=== PATIENT | female | born 1950 | race Caucasian/White ===

== ENCOUNTER 2020-08-01 12:47 | Outpatient (CLI) | payer MEDICARE, MEDICAID, SELFPAY ==
--- NOTE | ~2020-08-01 | MM_ITS ---
EXAMINATION: MM screening margaret BI w rm HISTORY: Screening TECHNIQUE: Craniocaudal and mediolateral oblique 3-D tomosynthesis images were obtained and synthetic 2-D images were generated. CAD analysis was submitted and interpreted. COMPARISON: Comparison to multiple prior studies sequentially, with oldest reviewed study dated 08/24. BREAST PARENCHYMAL COMPOSITION: There are scattered areas of fibroglandular density. FINDINGS: There is no evidence of suspicious mass, calcification, or architectural distortion to sugg est malignancy in either breast. There has been no suspicious interval change. IMPRESSION: 1. No mammographic evidence of malignancy. 2. Recommend routine screening mammography in one year. BI-RADS Category 1: Negative Reviewed, dictated and finalized at location A.
== END 2020-08-01 12:48 | disposition home or self-care (01) ==
PROVIDERS: PCP Family Medicine; Visit Provider Family Medicine
DX: Z12.31 Encounter for screening mammogram for malignant neoplasm of breast (principal)
CPT/HCPCS: 77063; 77067

== ENCOUNTER 2020-08-06 06:33 | Outpatient (CLI) | payer MEDICARE, MEDICAID, SELFPAY ==
--- NOTE | ~2020-08-06 | MR_ITS ---
EXAMINATION: MR lumbar spine wo con DATE: 08/06/2020 07:45 INDICATION: Lumbar radiculopathy TECHNIQUE: Magnetic resonance imaging (MRI) of the lumbar spine was performed without intravenous con trast. Sequences included sagittal T2-weighted FSE, sagittal T2-weighted FS FSE, sagittal T1-weighted FSE, and axial T2-weighted FSE. COMPARISON: None FINDINGS: 20 degrees lumbar levoscoliosis. Vertebral body heights are normal. Schmorl's node along the superior endplate of T12. T1 hyperintense hemangioma at T12. Severe disc height loss with associated fibrofat ty and fibrovascular degenerative endplate changes at L1-L2. Moderate disc height loss at L4-L5. Mild disc height loss at T10-T11, T11-T12, L2-L3 and L3-L4. The conus medullaris terminates at T12-L1. Th ere is normal signal in the caudal spinal cord. Paravertebral soft tissues are unremarkable. The foll owing disc levels are specifically discussed: T12-L1: Disc is bulging. There is mild bilateral facet joint osteoarthritis. There is mild right neur al foraminal stenosis. There is mild bilateral central canal stenosis. L1-L2: Disc is bulging. There is moderate left and moderate right facet joint osteoarthritis. There i s mild left and mild to moderate right neural foraminal stenosis. There is mild central canal stenosi s along with mild narrowing of the right lateral recess. L2-L3: Disc is bulging. There is moderate bilateral facet joint osteoarthritis. There is moderate lef t and mild to moderate right neural foraminal stenosis. There is mild central canal stenosis along wi th mild narrowing of the lateral recesses, left greater than right. L3-L4: Disc is bulging. There is hypertrophy of the ligamentum flavum. There is severe left and mild to moderate right facet joint osteoarthritis. There is mild to moderate bilateral neural foraminal st enosis. There is moderate central canal stenosis along with narrowing of the lateral recesses, left g reater than right. L4-L5: Disc is bulging with superimposed more focal small central disc protrusion. There is severe bi lateral facet joint osteoarthritis. There is mild to moderate bilateral neural foraminal stenosis. Th ere is mild central canal stenosis along with narrowing of the left and right lateral recesses. L5-S1: Disc is mildly bulging. There is moderate left and severe right facet joint osteoarthritis. Th ere is mild left and mild to moderate right neural foraminal stenosis. There is no central canal sten osis. There is mild narrowing of the lateral recesses. IMPRESSION: 1. 20 degrees lumbar dextroscoliosis with moderate to severe spondylosis. Reviewed, dictated and finalized at location A.
[2020-08-06 09:17] LABS: Basophils Absolute Auto 0.1 K/mm3 (0.0-0.1); Basophils Percent Auto 0.7 % (0.2-1.2); Eosinophils Absolute Auto 0.2 K/mm3 (0-0.3); Eosinophils Percent Auto 1.2 % (0-4.4); Hematocrit 45.8 % (37.0-47.0); Hemoglobin 15.5 g/dL (12.0-15.0); Immature Granulocyte Absolute 0.04 K/mm3 (0.00-0.031); Immature Granulocyte Percent A 0.3 % (0-0.5); Lymphocytes Absolute Auto 3.48 K/mm3 (0.9-3.2); Lymphocytes Percent Auto 25.4 % (18.3-44.2); Mean Corpuscular HGB Conc 33.8 g/dl (32-36); Mean Corpuscular Hemoglobin 30.9 pg (26-34); Mean Corpuscular Volume 91.4 fl (80-100); Mean Platelet Volume 9.6 fl (7.4-10.4); Monocytes Absolute Auto 0.8 K/mm3 (0.1-0.6); Monocytes Percent Auto 6.1 % (2.6-8.5); Neutrophils Absolute Auto 9.1 K/mm3 (1.3-6.7); Neutrophils Percent Auto 66.3 % (45.5-73.1); Platelet Count Result 324 k/mm3 (150-375); Red Blood Count 5.01 M/mm3 (4.2-5.4); Red Cell Distribution Width 12.5 % (11.5-14.5); White Blood Count 13.7 K/mm3 (4.5-10.0)
[2020-08-06 09:31] LABS: Alanine Aminotransferase 15 U/L (4-35); Albumin Level 4.6 g/dL (3.5-5.1); Alkaline Phosphatase 96 U/L (38-126); Anion Gap 10 mmol/L (8-16); Aspartate Amino Transferase 25 U/L (14-36); Bilirubin,Total 0.3 mg/dL (0.2-1.3); Blood Urea Nitrogen 15 mg/dL (7-17); Calcium 9.6 mg/dL (8.4-10.2); Carbon Dioxide 28 mmol/L (22-30); Chloride 102 mmol/L (98-107); Cholesterol 206 mg/dL (0-200); Estimated Glomerular Filt Rate 55; Glucose 115 mg/dL (65-105); HDL Direct 37 mg/dL; Potassium 4.2 mmol/L (3.4-5.0); Sodium 140 mmol/L (137-145); Triglycerides 308 mg/dL (<150)
[2020-08-06 09:41] LABS: LDL Cholesterol Direct 118 mg/dL
[2020-08-06 10:03] LABS: Free T4 Free Thyroxine 0.95 ng/mL (0.78-2.19)
[2020-08-06 10:16] LABS: Total Triiodothyronine (T3) 1.27 NG/ML (0.97-1.69)
[2020-08-06 10:17] LABS: Creatinine Urine 43.8 mg/dL
[2020-08-06 10:37] LABS: Vitamin D 25 Hydroxy 44.1 ng/mL
[2020-08-06 11:32] LABS: MALB Creatinine Ratio < 13.7 mg/g (0-30); Microalbumin Urine Random < 6.0 mg/L (0-16.7)
== END 2020-08-06 06:34 | disposition home or self-care (01) ==
PROVIDERS: PCP Family Medicine; Referring Provider Nurse Practitioner; Visit Provider Nurse Practitioner Adult Health
DX: E78.2 Mixed hyperlipidemia (principal); R53.83 Other fatigue; R06.00 Dyspnea, unspecified; E55.9 Vitamin D deficiency, unspecified; I10 Essential (primary) hypertension; M47.26 Other spondylosis with radiculopathy, lumbar region; M41.86 Other forms of scoliosis, lumbar region
CPT/HCPCS: 36415; 72148; 80053; 80061; 82043; 82306; 84439; 84443; 84480; 85025

== ENCOUNTER 2020-09-17 13:26 | Outpatient (CLI) | payer MEDICARE, MEDICAID, SELFPAY ==
--- NOTE | 2020-09-17 | ECG_ITS ---
Measurements Intervals [place] Rate: 80 P: 55 WA: 143 QRS: 33 QRSD: 71 T: 55 QT: 380 QTc: 441 Interpretive Statements SINUS RHYTHM BORDERLINE ST ABNORMALITY- ANTEROLATERAL LEADS BASELINE ARTIFACT- II, III BORDERLINE ECG Electronically Signed On 09-17-2020 14:43:12 CDT by Yoandy Johnson D.O.
== END 2020-09-17 13:27 | disposition home or self-care (01) ==
PROVIDERS: PCP Family Medicine
DX: I10 Essential (primary) hypertension (principal); R94.31 Abnormal electrocardiogram [ECG] [EKG]
CPT/HCPCS: 93005

== ENCOUNTER 2021-09-25 07:54 | Outpatient (CLI) | payer MEDICARE, MEDICAID, SELFPAY ==
--- NOTE | ~2021-09-25 | MM_ITS ---
EXAMINATION: MM screening margaret BI w rm HISTORY: Screening TECHNIQUE: Craniocaudal and mediolateral oblique 3-D tomosynthesis images were obtained and synthetic 2-D images were generated. CAD analysis was submitted and interpreted. COMPARISON: Comparison to multiple prior studies sequentially, with oldest reviewed study dated 09/23. BREAST PARENCHYMAL COMPOSITION: Breast composed of scattered areas of fibroglandular density. FINDINGS: There are developing asymmetries in the subareolar location of the right breast. The left b reast is stable without evidence for malignancy. IMPRESSION: 1. Developing right breast asymmetries. 2. Additional mammographic views and possible breast ultrasound are recommended. BI-RADS Category 0: Incomplete: Needs additional imaging evaluation. Reviewed, dictated and finalized at location A. IMPRESSION: 1. Developing right breast asymmetries. 2. Additional mammographic views and possible breast ultrasound are recommended . BI-RADS Category 0: Incomplete: Needs additional imaging evaluation.
--- NOTE | ~2021-09-25 | DEXA_ITS ---
Bone Density Report Name: Gloria Rodriguez Age: 71 Sex: Female Ethnicity: White Date of : 1950 Indication: postmenopausal; parental hip fracture; prior fracture; cancer; Referring Provider: ShoAlison Study: Bone densitometry was performed. Exam Date: September 25, 2021 Accession number: [id number] Bone Density: Region BMD T-score Z-score Classification AP Spine (L3, L4) 0.992 -1.0 1.3 Normal Femoral Neck (Left) 0.570 -2.5 -0.6 Osteoporosis Total Hip (Left) 0.840 -0.8 0.8 Normal Total Hip Bilateral Avg 0.821 -1.0 0.6 Osteopenia Femoral Neck (Right) 0.622 -2.0 -0.2 Osteopenia Total Hip (Right) 0.801 -1.2 0.4 Osteopenia World Health Organization criteria for BMD impression classify patients as: Normal (T-score at or above -1.0), Osteopenia (T-score between -1.0 and -2.5), or Osteoporosis (T-score at or below -2.5). 10-year Fracture Risk: FRAX not reported because: Some T-score for Spine Total or Hip Total or Femoral Neck at or below -2.5 Previous Exams: Region Exam Age BMD T-score BMD Change BMD Change Date g/cm2 vs Baseline vs Previous AP Spine(L3, L4) 09/25/2021 71 0.992 -1.0 -0.056(-5.4%)# 0.000(0.0%) 12/11/2016 66 0.992 -1.0 -0.056(-5.3%)# 0.062(6.7%)# 10/10/2013 63 0.930 -1.6 -0.118(-11.3%) -0.118(-11.3%) 11/21/2010 60 1.048 -0.5 Total Hip(Left) 09/25/2021 71 0.840 -0.8 -0.067(-7.4%)# -0.043(-4.8%)* 12/11/2016 66 0.883 -0.5 -0.025(-2.7%)# -0.026(-2.8%)# 10/10/2013 63 0.909 -0.3 0.001(0.1%)# 0.001(0.1%)# 11/21/2010 60 0.907 -0.3 Total Hip(Right) 09/25/2021 71 0.801 -1.2 -0.074(-8.5%)# -0.045(-5.4%)* 12/11/2016 66 0.846 -0.8 -0.029(-3.3%)# -0.011(-1.3%)# 10/10/2013 63 0.857 -0.7 -0.017(-2.0%)# -0.017(-2.0%)# 11/21/2010 60 0.875 -0.6 *Denotes significance at 95% confidence level, LSC for AP Spine = 0.022 g/cm2, LSC for Total Hip = 0.027 g/cm2 Clinical Information Provided by Patient: Has had a low trauma fracture Parent has had a hip fracture Smokes Has used the following medications: Vitamin D Has the following medical conditions: Cancer Patient maximum height was 60 Menopause Age: 50 No regular weight bearing exercise Does not regularly consume dairy products Drinks caffeinated beverages Onset of menses at age 13 Number of children 4 Impression: The patient has established osteoporosis, based on the Left Femoral Neck T-score and the existence of a prior
== END 2021-09-25 07:55 | disposition home or self-care (01) ==
LOC: ANHIMG 07:56
PROVIDERS: PCP Family Medicine; Visit Provider Nurse Practitioner Family
DX: Z12.31 Encounter for screening mammogram for malignant neoplasm of breast (principal); Z78.0 Asymptomatic menopausal state; M85.89 Other specified disorders of bone density and structure, multiple sites; M81.0 Age-related osteoporosis without current pathological fracture; R92.8 Other abnormal and inconclusive findings on diagnostic imaging of breast
CPT/HCPCS: 77063; 77067; 77080

== ENCOUNTER 2021-10-08 12:03 | Outpatient (CLI) | payer MEDICARE, MEDICAID, SELFPAY ==
--- NOTE | ~2021-10-08 | MMUS_ITS ---
EXAMINATION: MM diagnostic margaret RT w rm, US breast RT limited HISTORY: Focal asymmetry of the right breast on screening mammogram, history of right breast cancer TECHNIQUE: Additional 3-D tomosynthesis images of the right breast were performed and synthetic 2-D i mages were generated. CAD analysis was submitted and interpreted. High resolution limited right breas t ultrasound was performed. COMPARISON: 09/25/2021, 08/01/2020, 03/04/2018, 12/11/2016 FINDINGS: MAMMOGRAPHIC FINDINGS: Focal asymmetry in the subareolar aspect of the right breast persists with spot compression. No discr ete mass is identified. ULTRASOUND: There is a 7 mm x 4 mm oval, circumscribed, parallel, hypoechoic mass with posterior acoustic shadowi ng and no definite internal vascularity in the subareolar aspect of the breast. In addition, there is an ill-defined hypoechoic region in the subareolar breast which is near the patient's scar difficult to discriminate from postoperative change. IMPRESSION: 1. Indeterminate subareolar right breast mass. 2. Ultrasound-guided biopsy is recommended. BI-RADS category 4, suspicious findings. Reviewed, dictated and finalized at location A. CAL ASSOCIATE IMPRESSION: 1. Indeterminate subareolar right breast mass. 2. Ultrasound-guided biopsy is recommended. BI-RADS category 4, suspicious findings.
== END 2021-10-08 12:04 | disposition home or self-care (01) ==
PROVIDERS: PCP Family Medicine; Visit Provider Nurse Practitioner Family
DX: Z12.31 Encounter for screening mammogram for malignant neoplasm of breast (principal); R92.8 Other abnormal and inconclusive findings on diagnostic imaging of breast
CPT/HCPCS: 76642; 77061; 77065; G0279

== ENCOUNTER 2022-05-19 11:42 | Outpatient (CLI) | payer MEDICARE, MEDICAID, SELFPAY ==
--- NOTE | ~2022-05-19 | MMUS_ITS ---
EXAMINATION: MM diagnostic margaret RT w rm, US breast RT limited HISTORY: Follow-up right breast mass TECHNIQUE: Additional 3-D tomosynthesis images of the right breast were performed and synthetic 2-D i mages were generated. CAD analysis was submitted and interpreted. High resolution Limited right breas t ultrasound was performed. COMPARISON: Comparison to multiple prior studies sequentially, with oldest reviewed study dated 10/24. BREAST PARENCHYMAL COMPOSITION: Breast composed of scattered areas of fibroglandular density FINDINGS: MAMMOGRAPHIC FINDINGS: There is developing asymmetries in the periareolar location the right breast. There are no suspicious calcifications or architectural distortion. ULTRASOUND: Limited right breast ultrasound: There are multiple ill-defined hypoechoic masses of the right breast in the subareolar location, largest measuring 7 mm. These areas appear slightly prominent on both ul trasound and mammography. IMPRESSION: 1. Suspicious subareolar right breast masses. 2. Ultrasound-guided right breast biopsy recommended. BI-RADS category 4, suspicious findings. Reviewed, dictated and finalized at location A. IMPRESSION: 1. Suspicious subareolar right breast masses. 2. Ultrasound-guided right breast biopsy recommended. BI-RADS category 4, suspicious findings.
== END 2022-05-19 11:43 | disposition home or self-care (01) ==
PROVIDERS: PCP Family Medicine; Visit Provider Nurse Practitioner
DX: Z85.3 Personal history of malignant neoplasm of breast (principal); R92.8 Other abnormal and inconclusive findings on diagnostic imaging of breast
CPT/HCPCS: 76642; 77061; 77065; G0279

== ENCOUNTER 2022-08-26 10:09 | Outpatient (CLI) | payer MEDICARE, MEDICAID, SELFPAY ==
[2022-08-26 11:08] LABS: Basophils Absolute Auto 0.1 K/mm3 (0.0-0.1); Basophils Percent Auto 0.5 % (0.2-1.2); Eosinophils Absolute Auto 0.1 K/mm3 (0-0.3); Eosinophils Percent Auto 1.1 % (0-4.4); Hematocrit 42.5 % (37.0-47.0); Hemoglobin 14.2 g/dL (12.0-15.0); Immature Granulocyte Absolute 0.07 K/mm3 (0.00-0.031); Immature Granulocyte Percent A 0.5 % (0-0.5); Lymphocytes Absolute Auto 3.43 K/mm3 (0.9-3.2); Lymphocytes Percent Auto 26.5 % (18.3-44.2); Mean Corpuscular HGB Conc 33.4 g/dl (32-36); Mean Corpuscular Hemoglobin 32.4 pg (26-34); Monocytes Absolute Auto 0.8 K/mm3 (0.1-0.6); Monocytes Percent Auto 6.4 % (2.6-8.5); Neutrophils Absolute Auto 8.4 K/mm3 (1.3-6.7); Platelet Count Result 316 k/mm3 (150-375); Red Blood Count 4.38 M/mm3 (4.2-5.4); Red Cell Distribution Width 12.2 % (11.5-14.5)
[2022-08-26 11:28] LABS: Alanine Aminotransferase 16 U/L (6-35); Albumin Level 4.6 g/dL (3.5-5.1); Alkaline Phosphatase 80 U/L (38-126); Anion Gap 10 mmol/L (8-16); Aspartate Amino Transferase 25 U/L (14-36); Bilirubin,Total 0.5 mg/dL (0.2-1.3); Blood Urea Nitrogen 14 mg/dL (7-17); Calcium 9.2 mg/dL (8.4-10.2); Carbon Dioxide 26 mmol/L (22-30); Chloride 98 mmol/L (98-107); Cholesterol 184 mg/dL (0-200); Estimated Glomerular Filt Rate > 60; Glucose 114 mg/dL (65-110); HDL Direct 39 mg/dL; Potassium 4.1 mmol/L (3.4-5.0); Sodium 134 mmol/L (137-145); Triglycerides 233 mg/dL (<150)
[2022-08-26 11:35] LABS: LDL Cholesterol Direct 98 mg/dL
[2022-08-26 12:50] LABS: Total Triiodothyronine (T3) 1.63 NG/ML (0.97-1.69)
[2022-08-26 12:52] LABS: Free T4 Free Thyroxine 1.19 ng/mL (0.78-2.19); Vitamin D 25 Hydroxy 42.9 ng/mL
[2022-08-26 15:24] LABS: Hemoglobin A1C 6.1 % (<5.7)
== END 2022-08-26 10:10 | disposition home or self-care (01) ==
PROVIDERS: PCP Family Medicine; Visit Provider Family Medicine
DX: E78.5 Hyperlipidemia, unspecified (principal); I10 Essential (primary) hypertension; Z13.1 Encounter for screening for diabetes mellitus; E55.9 Vitamin D deficiency, unspecified
CPT/HCPCS: 36415; 80053; 80061; 82306; 83036; 84439; 84443; 84480; 85025

== ENCOUNTER 2022-09-09 14:03 | Outpatient (CLI) | payer MEDICARE, MEDICAID, SELFPAY ==
--- NOTE | ~2022-09-09 | CT_ITS ---
EXAMINATION: CT thoracic lumbar wo con DATE: 09/09/2022 14:28 INDICATION: Chronic mid to low back pain. Lumbar disc degeneration. TECHNIQUE: Computed tomography (CT) of the thoracic and lumbar spine was performed without intravenou s contrast. Automated exposure control and iterative reconstruction technique were employed. The dose -length product was 705.66 mGy-cm. COMPARISON: None FINDINGS: CT THORACIC SPINE: There is mild scarring at the lung apices. There is mild emphysema. Calcified pulm onary nodules and calcified hilar and mediastinal lymph nodes are consistent with old granulomatous d isease. There is 12 degrees levoscoliosis of thoracolumbar spine. There is mild chronic height loss o f T7 and T12 vertebral bodies. There are Schmorl's nodes at multiple levels. There is mildly decrease d disc height at multiple levels in mid and inferior thoracic spine. There is severely decreased disc height at T8-T9. At T8-T9, there is a calcified left central extrusion with mild central canal steno sis. At T11-T12, there is a calcified right central extrusion mild central canal stenosis. There is m ultilevel mild facet joint osteoarthritis. No neural foraminal stenosis. CT LUMBAR SPINE: There is 22 degrees dextroscoliosis of lumbar spine. Vertebral body heights are norm al. There is severely decreased disc height at L1-L2, moderately decreased disc height at L2-L3, and mildly decreased disc height at L3-L4, L4-L5, and L5-S1. The following disc levels are specifically d iscussed: T12-L1: The disc is bulging. There is mild bilateral facet joint osteoarthritis. There is mild right neural foraminal stenosis. There is mild central canal stenosis. L1-L2: The disc is bulging. There is moderate right and mild left facet joint osteoarthritis. There i s mild bilateral neural foraminal stenosis. There is mild central canal stenosis. L2-L3: The disc is bulging. There is severe bilateral facet joint osteoarthritis. There is mild bilat eral neural foraminal stenosis. There is mild central canal stenosis. L3-L4: The disc is bulging. There is severe bilateral facet joint osteoarthritis. There is mild bilat eral neural foraminal stenosis. There is mild central canal stenosis. L4-L5: The disc is bulging. There is severe bilateral facet joint osteoarthritis. There is mild bilat eral neural foraminal stenosis. There is mild central canal stenosis. L5-S1: The disc is bulging. There is severe bilateral facet joint osteoarthritis. There is mild bilat eral neural foraminal stenosis. There is mild central canal stenosis. IMPRESSION: 1. Severe thoracic and lumbar spondylosis. 2. Thoracolumbar levoscoliosis and lumbar dextroscoliosis. Reviewed, dictated and finalized at location B.
== END 2022-09-09 14:04 | disposition home or self-care (01) ==
PROVIDERS: PCP Family Medicine; Visit Provider Nurse Practitioner Adult Health
DX: M51.36 Other intervertebral disc degeneration, lumbar region (principal); M47.894 Other spondylosis, thoracic region; M47.896 Other spondylosis, lumbar region
CPT/HCPCS: 72128; 72131

== ENCOUNTER 2023-05-28 09:00 | Outpatient (CLI) | payer MEDICARE, MEDICAID, SELFPAY ==
[2023-05-28 12:35] LABS: Basophils Absolute Auto 0.1 K/mm3 (0.0-0.1); Basophils Percent Auto 0.4 % (0.2-1.2); Eosinophils Absolute Auto 0.1 K/mm3 (0-0.3); Eosinophils Percent Auto 0.5 % (0-4.4); Hemoglobin 13.2 g/dL (12.0-15.0); Immature Granulocyte Absolute 0.17 K/mm3 (0.00-0.031); Immature Granulocyte Percent A 1.1 % (0-0.5); Lymphocytes Absolute Auto 5.65 K/mm3 (0.9-3.2); Lymphocytes Percent Auto 35.4 % (18.3-44.2); Mean Corpuscular HGB Conc 33.8 g/dl (32-36); Mean Corpuscular Volume 94.4 fl (80-100); Mean Platelet Volume 8.9 fl (7.4-10.4); Neutrophils Percent Auto 56.6 % (45.5-73.1); Platelet Count Result 315 k/mm3 (150-375); Red Blood Count 4.13 M/mm3 (4.2-5.4); Red Cell Distribution Width 12.7 % (11.5-14.5)
[2023-05-28 12:48] LABS: Alanine Aminotransferase 19 U/L (6-35); Albumin Level 4.5 g/dL (3.5-5.1); Alkaline Phosphatase 58 U/L (38-126); Anion Gap 6 mmol/L (8-16); Aspartate Amino Transferase 22 U/L (14-36); Bilirubin,Total 0.3 mg/dL (0.2-1.3); Blood Urea Nitrogen 17 mg/dL (7-17); Calcium 9.6 mg/dL (8.4-10.2); Carbon Dioxide 33 mmol/L (22-30); Chloride 101 mmol/L (98-107); Cholesterol 201 mg/dL (0-200); Estimated Glomerular Filt Rate 54; Glucose 97 mg/dL (65-110); HDL Direct 44 mg/dL; Potassium 4.4 mmol/L (3.4-5.0); Sodium 140 mmol/L (137-145); Triglycerides 325 mg/dL (<150)
[2023-05-28 12:59] LABS: LDL Cholesterol Direct 100 mg/dL
[2023-05-28 13:19] LABS: Thyroid Stimulating Hormone 0.655 uIU/mL (0.465-4.680); Total Triiodothyronine (T3) 1.22 NG/ML (0.97-1.69)
[2023-05-28 13:20] LABS: Free T4 Free Thyroxine 0.95 ng/mL (0.78-2.19)
== END 2023-05-28 09:01 | disposition home or self-care (01) ==
PROVIDERS: PCP Family Medicine; Visit Provider Nurse Practitioner Adult Health
DX: E78.5 Hyperlipidemia, unspecified (principal); R53.1 Weakness; R53.83 Other fatigue; I10 Essential (primary) hypertension; R73.03 Prediabetes
CPT/HCPCS: 36415; 80053; 80061; 84439; 84443; 84480; 85025

== ENCOUNTER 2023-07-03 10:11 | Outpatient (CLI) | payer MEDICARE, MEDICAID, SELFPAY ==
--- NOTE | 2023-07-06 17:01 | P.PCNPFT_ITS ---
PFT Procedure Performed PFT Procedure Performed Plethysmography (Lung Vol) Diffusing Cap (DLCO) Flow Vol Loop Spirometry w/o Bronchodil PFT Interpretation This is a pulmonary function test with spirometry, plethysmography and diffusing capacity. The test was performed and results interpreted in accordance with the 2019 and 2005 ATS/ERS Task Force guidelines respectively using the Global Lung Function Initiative-2012 reference equations. Patient demonstrated good effort and cooperation. Reproducibility criteria were met. The quality of the spirometry maneuver was Grade B. Findings: Spirometry: The contour the inspiratory and expiratory flow tracing are normal. The FVC is 2.14 L, 91% predicted. The FEV1 is 1.48 L, 80% predicted. The FEV1: FVC ratio 69%. Plethysmography: The total lung capacity is 5.42 L, 122% predicted. The functional residual capacity is 2.77 L, 110% predicted. The residual volume is 2.77 L, 135% predicted. Diffusing capacity: The diffusing capacity unadjusted for hemoglobin and carboxyhemoglobin is 11.1, 60% predicted. The diffusing capacity adjusted for a lveolar volume is 3.15, 71% predicted. In comparison to previous pulmonary function testing on 04/20/2019 the pre bronchodilator FVC is unchanged from 2.15 L to 2.14 L. The pre bronchodilator FEV1 is unchanged from 1.43 L to 1.48 L. The total lung capacity is increased from 4.49 L to 5.42 L. The functional residual capacity is unchanged from 3.01 L to 2.77 L. The residual volume is increased from 2.34 L to 2.77 L. The diffusing capacity unadjusted for hemoglobin and carboxyhemoglobin is decreased from 13.5 to 11.1. The diffusing capacity adjusted for alveolar volume is decreased from 4.18 to 3.15. Impression: The spirometry is normal without evidence of an obstructive abnormality. The lung volumes are normal. The diffusing capacity unadjusted for hemoglobin and carboxyhemoglobin is moderately decreased and normalizes when adjusted for alveolar volume. I when compared to previous pulmonary function testing on 04/20/2019 there has been a greater than anticipated time dependent increase in the total lung capacity and residual volume with a greater than anticipated time dependent decrease in the DLCO with no significant change in the FVC, FEV1 or functional residual capacity. Clinical correlation is recommended.
== END 2023-07-03 10:12 | disposition home or self-care (01) ==
LOC: ANHPFT 10:11
PROVIDERS: PCP Family Medicine; Visit Provider Nurse Practitioner Adult Health
DX: J44.9 Chronic obstructive pulmonary disease, unspecified (principal); R06.09 Other forms of dyspnea
CPT/HCPCS: 94375; 94726; 94729

== ENCOUNTER 2023-07-21 08:51 | Day surgery (SDC) | payer MEDICARE, MEDICAID, SELFPAY ==
[2023-07-13 14:04] VITALS: BMI 25.8
--- NOTE | 2023-07-13 14:37 | PC.NURSE ---
DURING PT INTERVIEW, PT STATED I'VE BEEN KNOW TO SCREAM AND HIT PEOPLE DURING MEDICAL PROCEDURES .
--- NOTE | ~2023-07-21 | XR_ITS ---
EXAMINATION: XR fluoroscopy no charge DATE: 07/21/2023 10:33 CDT INDICATION: BILAT L3, L4, L5, MEDIAL BRANCH DORSAL RAMUS BLOCK . TECHNIQUE: 3 fluoroscopic images of the lumbar spine were obtained during bilateral L3, L4, and L5 me dial branch, dorsal ramus block performed by the surgeon. I was not present in the operating room. Fl uoroscopy exposure time was 29.0 seconds. Air Kerma 14.43 mGy. COMPARISON: None FINDINGS: Bilateral needles approach the lateral aspects of L4, L5, and L5-S1 followed by contrast injection. IMPRESSION: Fluoroscopic documentation of bilateral L3, L4 and L5 medial branch, dorsal ramus block. Please refer to the operative note for complete procedural details . Reviewed, dictated and finalized at location K. IMPRESSION: Fluoroscopic documentation of bilateral L3, L4 and L5 medial branch, dorsal henrik us block. Please refer to the operative note for complete procedural details .
--- NOTE | 2023-07-21 08:13 | WPDHPUPDATE1 ---
History and Physical Update Update Date/Time: 07/21/23 08:13 History and Physical has been reviewed, including an updated exam of the patient. There are NO changes in the patient's condition. Risks, benefits, and alternatives have been discussed and questions answered. Patient agrees to proceed with procedure.
[2023-07-21 09:27] VITALS: BP 156/87; PULSE 141; RESP 16; TEMP 36.9; O2SAT 95
[2023-07-21 10:30] VITALS: BP 171/83; PULSE 131; O2SAT 99
[2023-07-21 10:40] VITALS: BP 169/102; PULSE 130; O2SAT 98
[2023-07-21] MEDS: LIDOCAINE HCL 1% PF INJ 5 ML VIAL 3 ML XX (10:40)
[2023-07-21] MEDS: BUPivacaine HCL 0.5% 10 ML AMP INFILTRATE (10:41)
--- NOTE | 2023-07-21 10:51 | W.PM.PROC2 ---
Procedure Note - Detailed Date of Procedure 07/21/23 Pre-op Diagnosis Lumbosacral spondylosis, Chronic low back pain Post-op Diagnosis Same Procedure Performed Bilateral L3, L4, L5 medial branch/dorsal ramus blocks (#1) addressing the bilateral L4-5, L5-S1 facet joints (4 levels) under fluoroscopic guidance with contrast control. Surgeon Sarath Gonzalez MD Anesthesia Local Indications Chronic bilateral low back pain secondary to lumbosacral facet arthropathy recalcitrant to conservative treatment. Description of Procedure INFORMED CONSENT: Risks, benefits and alternatives to the procedure were discussed in detail with the patient who expressed explicit understanding and consent to proceed. Patient was informed verbally and in written form regarding the risks associated with the procedure including the low risk of serious infection, bleeding/bruising, allergic reaction, nerve or organ injury, paralysis, procedural site pain or discomfort, worsening pain and/or mobility, failure to treat and/or disfigurement. The patient expressed explicit understanding and consent to proceed. All materials required for the procedure were available prior to procedure start. Site and side were marked prior to procedure and confirmed in the presence of the patient. PROCEDURE IN DETAIL: The patient was brought to the procedural suite and placed in the prone position. Patient was made comfortable with use of pillows under the head/chest, hips and ankles. Skin overlying the injection site on the affected side(s) was prepared broadly with ChloraPrep applicator and draped in a sterile manner. Aseptic technique was used throughout. The endplates of the vertebral bodies at the site(s) of interest were aligned in the AP view. Ipsilateral oblique angulation was utilized to optimize visualization of the intersection between the superior articulating process and transverse process at each target site. Local anesthesia was established by infiltration with approximately 5 mL of 1% lidocaine via a 1-1/2 inch 27-gauge needle. A 25-gauge 3.5 inch Quincke spinal needle was advanced until the needle tip contacted periosteum at the target site, right L3. Lateral view was utilized to confirm the appropriate placement of the needle tip just anterior to the facet line and superior to the pedicle. In the Lateral view, 0.25 mL of Omnipaque 300 contrast medium was injected after negative aspiration for CSF, blood or other bodily fluid, showing appropriate extra-articular spread of contrast without evidence of intravascular, foraminal or intrathecal placement. A 0.5 mL solution of 0.5% PF bupivacaine was injected after negative repeat aspiration. Appropriate spread of the injectate was confirmed with washout of previously injected contrast. No parasthesias were elicited. Needle was removed completely intact without difficulty. The same exact procedure was repeated for all remaining levels on the ipsilateral side, right L4, L5 medial branches/dorsal ramus, modified as necessary to accommodate for the new target location with identical findings and results and no evidence of complication. The same exact procedure was repeated for all remaining levels on the contralateral side, left L3, L4, L5 medial branches/dorsal ramus, modified as necessary to accommodate for the new target location with identical findings and results and no evidence of complication. Images were saved and documented in the patient chart. Patient's skin was cleaned and sterile bandage applied. The patient tolerated the procedure well. The patient was transported to the recovery area in stable condition where they were observed for an appropriate amount of time prior to discharge, without evidence of complication. Patient was instructed on the appropriate completion of a pain diary over the next 12-24 hours. The patient was instructed to avoid excessive activity for the next 48 hours, including climbing and frequent use of stairs. Showers only fo
[2023-07-21 10:54] VITALS: BP 139/79; PULSE 126; RESP 20; O2SAT 97
== END 2023-07-21 11:15 | disposition home or self-care (01) ==
LOC: ASC 09:09
PROVIDERS: PCP Family Medicine; Visit Provider Anesthesiology Pain Medicine
PROC: (CPT 64493; principal; 2023-07-21 10:00)
DX: M47.817 Spondylosis without myelopathy or radiculopathy, lumbosacral region (principal); M54.59 Other low back pain
CPT/HCPCS: 64493; 64494; 99199

== ENCOUNTER 2023-08-18 05:53 | Day surgery (SDC) | payer MEDICARE, MEDICAID, SELFPAY ==
--- NOTE | ~2023-08-18 | XR_ITS ---
EXAMINATION: XR fluoroscopy no charge DATE: 08/18/2023 8:50 CDT INDICATION: ABDULAZIZ L3,L4,L5 MEDIAL BRANCH/DORSAL RAMUS PERIPHERAL NERVE BK . TECHNIQUE: 9 fluoroscopic images of the lumbar spine were obtained during bilateral L3-L5 medial bran ch/dorsal ramus peripheral nerve block. I was not present during the procedure. Fluoroscopy exposure time was 22 seconds. Air Kerma 12.69 mGy. COMPARISON: None FINDINGS: Multiple fluoroscopic images demonstrate bilateral needle placement at L3-4 through L5-S1 followed by contrast injection. IMPRESSION: Fluoroscopic documentation of bilateral L3-L5 medial branch/dorsal ramus peripheral nerve block. Plea se refer to the operative note for complete procedural details . Reviewed, dictated and finalized at location K. IMPRESSION: Fluoroscopic documentation of bilateral L3-L5 medial branch/dorsal ramus periph eral nerve block. Please refer to the operative note for complete procedural de tails .
[2023-08-18 07:23] VITALS: BP 156/95; PULSE 128; RESP 20; TEMP 36.8; O2SAT 95
--- NOTE | 2023-08-18 07:23 | WPDHPUPDATE1 ---
History and Physical Update Update Date/Time: 08/18/23 07:23 History and Physical has been reviewed, including an updated exam of the patient. There are NO changes in the patient's condition. Risks, benefits, and alternatives have been discussed and questions answered. Patient agrees to proceed with procedure.
[2023-08-18 08:20] VITALS: BP 223/89; PULSE 123; RESP 20; O2SAT 97
[2023-08-18 08:30] VITALS: BP 168/85; PULSE 118; RESP 18; O2SAT 97
--- NOTE | 2023-08-18 08:35 | W.PM.PROC2 ---
Procedure Note - Detailed Date of Procedure 08/18/23 Pre-op Diagnosis lumbosacral spondylosis, chronic low back pain Post-op Diagnosis Same Procedure Performed bilateral L3, L4, L5 medial branch/ dorsal ramus diagnostic block with fluoroscopic guidance and contrast control. Surgeon Sarath Gonzalez MD Anesthesia Local Indications Recalcitrant , chronic low back pain secondary to lumbosacral spondylosis and lumbar facet syndrome. Description of Procedure INFORMED CONSENT: Risks, benefits and alternatives to the procedure were discussed in detail with the patient who expressed explicit understanding and consent to proceed. Patient was informed verbally and in written form regarding the risks associated with the procedure including the low risk of serious infection, bleeding/bruising, allergic reaction, nerve or organ injury, paralysis, procedural site pain or discomfort, worsening pain and/or mobility, failure to treat and/or disfigurement. The patient expressed explicit understanding and consent to proceed. All materials required for the procedure were available prior to procedure start. Site and side were marked prior to procedure and confirmed in the presence of the patient. PROCEDURE IN DETAIL: The patient was brought to the procedural suite and placed in the prone position. Patient was made comfortable with use of pillows under the head/chest, hips and ankles. Skin overlying the injection site on the affected side(s) was prepared broadly with ChloraPrep applicator and draped in a sterile manner. Aseptic technique was used throughout. The endplates of the vertebral bodies at the site(s) of interest were aligned in the AP view. Ipsilateral oblique angulation was utilized to optimize visualization of the intersection between the superior articulating process and transverse process at each target site. Local anesthesia was established by infiltration with approximately 5 mL of 1% lidocaine via a 1-1/2 inch 27-gauge needle. A 25-gauge 3.5 inch Quincke spinal needle was advanced until the needle tip contacted periosteum at the target site, right L3. Lateral view was utilized to confirm the appropriate placement of the needle tip just anterior to the facet line and superior to the pedicle. In the Lateral view, 0.25 mL of Omnipaque 300 contrast medium was injected after negative aspiration for CSF, blood or other bodily fluid, showing appropriate extra-articular spread of contrast without evidence of intravascular, foraminal or intrathecal placement. A 0.5 mL solution of 2.0% preservative-free lidocaine was injected after negative repeat aspiration. Appropriate spread of the injectate was confirmed with washout of previously injected contrast. No parasthesias were elicited. Needle was removed completely intact without difficulty. The same exact procedure was repeated for all remaining levels on the ipsilateral side, right L4, L5 medial branches/dorsal ramus, modified as necessary to accommodate for the new target location with identical findings and results and no evidence of complication. The same exact procedure was repeated for all remaining levels on the contralateral side, left L3, L4, L5 medial branches/dorsal ramus, modified as necessary to accommodate for the new target location with identical findings and results and no evidence of complication. Images were saved and documented in the patient chart. Patient's skin was cleaned and sterile bandage applied. The patient tolerated the procedure well. The patient was transported to the recovery area in stable condition where they were observed for an appropriate amount of time prior to discharge, without evidence of complication. Patient was instructed on the appropriate completion of a pain diary over the next 12-24 hours. The patient was instructed to avoid excessive activity for the next 48 hours, including climbing and frequent use of stairs. Showers only for 48 hours. They were instructed not to drive or
[2023-08-18 08:40] VITALS: BP 155/83; PULSE 120; RESP 20; O2SAT 95
[2023-08-18] MEDS: LIDOCAINE HCL 1% PF INJ 5 ML VIAL 8 ML AFFCTD EYE (08:42)
[2023-08-18] MEDS: LIDOCAINE HCL 2% PF INJ 5 ML VIAL 4 ML INFILTRATE (08:43)
--- NOTE | 2023-08-18 08:56 | SUR.PREOP ---
0800; PT'S SISTER CAME OUT OF PT ROOM AND ASKED IF PT COULD TAKE ANOTHER PAIN PILL SHE BROUGHT WITH HER. TOLD PT'S SISTER NO. DR PIERSON NOTIFIED. DR PIERSON ALSO SAID NO.
== END 2023-08-18 08:50 | disposition home or self-care (01) ==
PROVIDERS: PCP Family Medicine; Visit Provider Anesthesiology Pain Medicine
PROC: (CPT 64493; principal; 2023-08-18 08:00)
DX: M47.817 Spondylosis without myelopathy or radiculopathy, lumbosacral region (principal); M54.59 Other low back pain
CPT/HCPCS: 64493; 99199

== ENCOUNTER 2024-03-04 17:26 | Outpatient (CLI) | payer MEDICARE, MEDICAID, SELFPAY ==
[2024-03-04 18:01] LABS: Alanine Aminotransferase 9 U/L (6-35); Albumin Level 4.5 g/dL (3.5-5.1); Alkaline Phosphatase 60 U/L (38-126); Anion Gap 7 mmol/L (4-12); Aspartate Amino Transferase 25 U/L (14-36); Bilirubin,Total 0.4 mg/dL (0.2-1.3); Blood Urea Nitrogen 9 mg/dL (7-17); Calcium 9.6 mg/dL (8.4-10.2); Carbon Dioxide 26 mmol/L (22-30); Chloride 106 mmol/L (98-107); Estimated Glomerular Filt Rate 54; Glucose 104 mg/dL (65-110); Potassium 3.9 mmol/L (3.4-5.0); Sodium 139 mmol/L (137-145)
== END 2024-03-04 17:27 | disposition home or self-care (01) ==
PROVIDERS: PCP Family Medicine
DX: M54.16 Radiculopathy, lumbar region (principal); M51.36 Other intervertebral disc degeneration, lumbar region; M48.00 Spinal stenosis, site unspecified; R20.0 Anesthesia of skin
CPT/HCPCS: 36415; 80053